=== PATIENT | female | born 1990 | race Caucasian/White ===

== ENCOUNTER 2024-07-06 09:22 | Inpatient (IN) | payer BC, MEDICAID ==
[~2024-07-06] VITALS: Ht 170.2 cm; Wt 106.9 kg
--- NOTE | 2024-07-06 10:01 | ED.PDOC ---
History of Present Illness HPI Comments 33-year-old female presents with a chief complaint of abdominal pain x 2 days with associated nausea, vomiting, and diarrhea. Patient states that her abdominal pain is localized to her epigastric region, non-radiating, and rates her pain a 7/10. Patient reports that she was seen here on Saturday and had imag ing done. Patient reports that she has been taking over the counter ibuprofen, but states that she has not had any relief of symptoms. No other symptoms or modifying factors present at this time. Chief Complaint: Abdominal Pain Time Seen by MD: 09:44 Reviewed Notes: Medications, Allergies Allergies: Coded Allergies: NO KNOWN ALLERGIES (Unverified , 07/06/24) Information Source: Patient Mode of Arrival: Ambulatory Severity: Moderate Timing: Days Duration: Since onset Prehospital treatment: None Past Medical History PAST MEDICAL HISTORY: Denies Surgical History: Denies all surgeries BILINGUAL CALL CENTER REPRESENTATIVE History: Denies all BILINGUAL CALL CENTER REPRESENTATIVE Hx Family History Family History: Reviewed,noncontributory to illness Social History Smoker: Non-Smoker Alcohol: Denies ETOH Use Drugs: Denies Drug Use Lives In: Home Constitutional: denies: chills, diaphoresis, fatigue, fever, malaise, sweats, weakness, others EENTM: denies: blurred vision, double vision, ear bleeding, ear discharge, ear drainage, ear pain, ear ringing, eye pain, eye redness, hearing loss, mouth pain, mouth swelling, nasal discharge, nose bleeding, nose congestion, nose pain, photophobia, tearing, throat pain, throat swelling, voice changes, others Respiratory: denies: cough, hemoptysis, orthopnea, SOB at rest, shortness of breath, SOB with excertion, stridor, wheezing, others Cardiovascular: denies: chest pain, dizzy spells, diaphoresis, Dyspnea on exertion, edema, irregular heart beat, left arm pain, lightheadedness, palpitations, PND, syncope, others Gastrointestinal: reports: abdominal pain, diarrhea, nausea, vomiting; denies: abdomen distended, blood streaked bowels, constipated, dysphagia, difficulty swallowing, hematemesis, melena, poor appetite, poor fluid intake, rectal bleeding, rectal pain, others Genitourinary: denies: abnormal vagina bleeding, burning, dyspareunia, dysuria, flank pain, frequency, hematuria, incontinence, pain, , vagina discharge, urgency, others Neurological: denies: dizziness, fainting, headache, left sided numbness, left sided weakness, numbness, paresthesia, pre-existing deficit, right sided numbness, right sided weakness, seizure, speech problems, tingling, tremors, weakness, others Musculoskeletal: denies: back pain, gout, joint pain, joint swelling, muscle pain, muscle stiffness, neck pain, others Integumetry: denies: bruises, change in color, change in hair/nails, dryness, laceration, lesions, lumps, rash, wounds, others Allergic/Immunocompromised: denies: Difficulty Healing, Frequent Infections, Hives, Itching, others Hematologic/Lymphatic: denies: anemia, blood clots, easy bleeding, easy bruising, swollen glands, others Endocrine: denies: excessive hunger, excessive sweating, excessive thirst, excessive urination, flushing, intolerance to cold, intolerance to heat, unexplained weight gain, unexplained weight loss, others Psychiatric: denies: anxiety, bipolar disorder, depression, hopeless, panic disorder, schizophrenia, sleepless, suicidal, others All Other Systems: Reviewed and Negative Physical Exam General Appearance: No Apparent Distress, Normal HEENT: Normal ENT Inspection, Pharynx Normal, TMs Normal Neck: Full Range of Motion, Non-Tender, Normal, Normal Inspection Respiratory: Chest Non-Tender, Lungs Clear, No Accessory Muscle Use, No Respiratory Distress, Normal Breath Sounds Cardiovascular: No Edema, No JVD, No Murmur, No Gallop, Normal Peripheral Pulses, Regular Rate/Rhythm Breast Exam: Deferred Gastrointestinal: No Organomegaly, Non Tender, No Pulsatile Mass, Normal Bowel Sounds, Soft Genitalia: Deferred Pelvic: Deferred Rectal: Deferred Extremities: No calf tenderness, Normal capillary refill, Normal inspection, Normal range of motion, Non-tender, No pedal edema Musculoskeletal : Apperance: Normal Neurologic: Alert, warper fixer II-XII nml as Tested, No Motor Deficits, Normal Affect, Normal Mood, No Sensory Deficits Cerebellar Function: Normal Reflexes: Normal Skin: Dry, Normal Color, Warm Lymphatic: No Adenopathy Was a procedure done? Was a procedure done?: No Differential Dx Considerations may include: Acute appendicitis, cholecystitis, acid reflux, ovarian cysts, pancreatitis X-Ray, Labs, Meds, VS Vital Signs Date Time Temp Pulse Resp B/P (MAP) Pulse Ox O2 Delivery O2 Flow Rate FiO2 07/06/24 12:03 72 16 114/73 07/06/24 10:57 98.0 68 16 114/81 (92) 96 98.0 07/06/24 10:57 68 18 96 Room Air* 0 21 07/06/24 10:55 65 16 114/81 07/06/24 09:46 98.0 82 18 125/72 (89) 100 Lab Test 07/06/24 11:00 07/06/24 09:52 Range/Units White Blood Count 8.3 4.4-10.8 10^3/uL Red Blood Count 4.37 4.0-5.20 10^6/uL Hemoglobin 13.7 12.2-16.2 g/dL Hematocrit 40.2 36.0-46.0 % Mean Corpuscular Volume 91.8 80.0-100.0 fL Mean Corpuscular Hemoglobin 31.4 28.0-32.0 pg Mean Corpuscular Hemoglobin Concent 34.2 32.0-36.0 g/dL Red Cell Distribution Width 12.9 11.8-14.3 % Platelet Count 249 140-450 10^3/uL Mean Platelet Volume 8.9 6.9-10.8 fL Neutrophils (%) (Auto) 58.2 37.0-80.0 % Lymphocytes (%) (Auto) 34.3 10.0-50.0 % Monocytes (%) (Auto) 5.3 0.0-12.0 % Eosinophils (%) (Auto) 1.4 0.0-7.0 % Basophils (%) (Auto) 0.8 0.0-2.0 % Neutrophils # (Auto) 4.8 1.6-8.6 10 ^3/uL Lymphocytes # (Auto) 2.8 0.4-5.4 10 ^3/uL Monocytes # (Auto) 0.4 0-1.3 10 ^3/uL Eosinophils # (Auto) 0.1 0-0.8 10 ^3/uL Basophils # (Auto) 0.1 0-0.2 10 ^3/uL Nucleated Red Blood Cells 0.1 % Sodium Level 141 136-145 mmol/L Potassium Level 3.3 L 3.5-5.1 mmol/L Chloride Level 109 H 98-107 mmol/L Carbon Dioxide Level 22 20-31 mmol/L Anion Gap 10 5-15 Blood Urea Nitrogen 9 9-23 mg/dL Creatinine 0.75 0.550-1.02 mg/dL Glomerular Filtration Rate Calc 108 >90 mL/min BUN/Creatinine Ratio 12.0 10.0-20.0 Serum Glucose 97 74-106 mg/dL Calcium Level 9.4 8.7-10.4 mg/dL Total Bilirubin 0.7 0.2-1.0 mg/dL Aspartate Amino Transferase (AST) 22 13-40 U/L Alanine Aminotransferase (ALT) 50 H 7-40 U/L Alkaline Phosphatase 76 46-116 U/L Total Protein 7.1 5.7-8.2 g/dL Albumin 4.5 3.2-4.8 g/dL Lipase 29 12-53 U/L Urine Color Yellow Yellow Urine Clarity Turbid H Clear Urine pH 5.5 5.0-9.0 Urine Specific [place] 1.021 1.001-1.035 Urine Protein Negative Negative Urine Ketones 1+ H Negative Urine Blood 2+ H Negative /uL Urine Nitrite Negative Negative Urine Bilirubin Negative Negative Urine Urobilinogen Normal Negative mg/dL Urine Leukocyte Esterase Negative Negative /uL Urine RBC 5 0 - 4 /hpf Urine WBC 7 0 - 5 /hpf Urine Squamous Epithelial Cells Few <5 /hpf Urine Bacteria None seen None Seen /hpf Urine Mucus Few None Seen Urine Glucose Normal Normal mg/dL Current Medications Medications (Trade) Dose Ordered Sig/Humberto Route Start Time Stop Time Status Last Admin Sodium Chloride 1,000 ml @ 1,000 mls/hr Q1H ONCE IV 07/06/24 10:30 07/06/24 11:29 DC 07/06/24 10:55 Ondansetron HCl (Zofran) 4 mg ONCE ONCE IV 07/06/24 10:30 07/06/24 10:31 DC 07/06/24 10:55 Morphine Sulfate 4 mg ONCE ONCE IV 07/06/24 10:30 07/06/24 10:31 DC 07/06/24 10:55 Time of 1ST Reevaluation: 10:14 Reevaluation 1ST: Unchanged Patient Education/Counseling: Diagnosis, Treatment, Prognosis Family Education/Counseling: No Family Present Departure 1 Departure Time of Disposition: 15:49 (Patient presented with abdominal pain that was concerning for possible appendicits, gastritis, cholecystitis, colitis, ga stroenteritis, sbo, or orther possible surgical emergency. Data: 1. I ordered and reviewed the result of at least 3 labs including a CBC, BMP, and Urinalysis. 2. I independently interpreted the following tests: CT Abdoment and Pelvis is concerning for ovarian cysts .Risk:This patient has a high risk of morbidity due to further diagnostic testing or treatment and may suffer from an acute abdominal process disorder. Workup reveals ovarian cyst and intractable abdominal pain and patient should be admitted for further workup. and possible expert consultation. ) Impression: Primary Impression: Intractable abdominal pain Additional Impression: Ovarian cyst Qualified Codes: N83.201 - Unspecified ovarian cyst, right side; N83.202 - Unspecified ovarian cyst, left side Disposition: ADMITTED INPATIENT Admit to: Med Surg Condition: Serious Critical Care Note Critical Care Time?: Yes Critical care comment: Intractable abdominal pain Authorized and Performed by: Alexandre Izaguirre MD Total critical care time: Approximately 32 minutes Due to a high probability of clinically significant, life threatening deterioration, the patient required my highest level of preparedness to i ntervene emergently and I personally spent this critical care time directly and personally managing the patient. This critical care time included obtaining a history; examining the patient; pulse oximetry; ordering and review of studies; arranging urgent treatment with development of a management plan; evaluation of patient's response to treatment; frequent reassessment; and, discussions with other providers. This critical care time was performed to assess and manage the high probability of imminent, life-threatening deterioration that could result in multi-organ failure. It was exclusive of separately billable procedures and treating other patients and teaching time. Please see my other sections and the rest of the note for further information on patient assessment and treatment. Stability Stability form required: No I personally scribed for ALEXANDRE IZAGUIRRE MD ([email or web address]) on 07/06/24 at 10:01. Electronically submitted by Tab Nelson ([email or web address]). ALEXANDRE IZAGUIRRE MD Jul 06, 2024 10:01
[2024-07-06] MEDS: MORPHINE SULFATE 4 MG/ML SYR/VIAL IV ONE ×2 (10:55→16:26)
[2024-07-06] MEDS: ONDANSETRON HCL 4 MG/2 ML VIAL IV ONE ×2 (10:55→16:25)
[2024-07-06] MEDS: SODIUM CHLORIDE 0.9% 1,000 ML IV ONE (10:55)
[2024-07-06 10:57] VITALS: PULSE 68; RESP 18; O2SAT 96
[2024-07-06 11:10] LABS: Basophils # (auto) 0.1 10 ^3/uL (0-0.2); Basophils % (auto) 0.8 % (0.0-2.0); Eosinophils # (auto) 0.1 10 ^3/uL (0-0.8); Eosinophils % (auto) 1.4 % (0.0-7.0); Hematocrit 40.2 % (36.0-46.0); Hemoglobin 13.7 g/dL (12.2-16.2); Lymphocytes # (auto) 2.8 10 ^3/uL (0.4-5.4); Lymphocytes % (auto) 34.3 % (10.0-50.0); Mean Corpuscular Hemoglobin 31.4 pg (28.0-32.0); Mean Corpuscular Hgb Conc. 34.2 g/dL (32.0-36.0); Mean Corpuscular Volume 91.8 fL (80.0-100.0); Monocytes # (auto) 0.4 10 ^3/uL (0-1.3); Monocytes % (auto) 5.3 % (0.0-12.0); Neutrophils # (auto) 4.8 10 ^3/uL (1.6-8.6); Neutrophils % (auto) 58.2 % (37.0-80.0); Nucleated Red Blood Cells % 0.1 %; Platelet Count (auto) 249 10^3/uL (140-450); Red Blood Cells 4.37 10^6/uL (4.0-5.20); Red Cell Distribution Width 12.9 % (11.8-14.3); White Blood Cell 8.3 10^3/uL (4.4-10.8)
[2024-07-06 11:38] LABS: Alanine Aminotransferase 50 U/L (7-40); Albumin 4.5 g/dL (3.2-4.8); Alkaline Phosphatase 76 U/L (46-116); Anion Gap 10 (5-15); Aspartate Aminotransferase 22 U/L (13-40); Bilirubin, Total 0.7 mg/dL (0.2-1.0); Blood Urea Nitrogen 9 mg/dL (9-23); Calcium 9.4 mg/dL (8.7-10.4); Carbon Dioxide 22 mmol/L (20-31); Chloride 109 mmol/L (98-107); Glucose 97 mg/dL (74-106); Potassium 3.3 mmol/L (3.5-5.1); Sodium 141 mmol/L (136-145); Total Protein 7.1 g/dL (5.7-8.2)
[2024-07-06 12:13] LABS: Urine Bacteria None Seen /hpf (None Seen)
[2024-07-06 12:29] LABS: Urine Blood 2+ /uL (Negative); Urine Clarity Turbid (Clear); Urine Color Yellow (Yellow); Urine Mucus FEW (None Seen); Urine Protein, UAD Negative (Negative); Urine Specific Gravity 1.021 (1.001-1.035); Urine Urobilinogen Normal (Negative); Urine WBC 7 /hpf (0 - 5); Urine pH 5.5 (5.0-9.0)
[2024-07-06 12:47] LABS: Lipase 29 U/L (12-53)
[2024-07-06] MEDS: IOHEXOL 300 MG/ML 100ML BOTTLE IJ ONE (13:36)
--- NOTE | 2024-07-06 13:55 | DVH ---
Exam: CT CT AB PEL WITH IV CON ONLY History: worsening epigastric pain TECHNIQUE: A digital buckle sewer machine image was obtained. During the uneventful, intravenous administration of c ontrast material, multislice data acquisition was obtained through the abdomen and pelvis. The data s et was subsequently reconstructed into axial images. Images were reviewed on a work station using a c ombination of axial and multiplanar using a variety of window levels and settings. 100 cc of Omnipaqu e 300 contrast was injected intravenously. All CT scans at this medical facility are performed using dose modulation techniques as appropriate t o a performed exam including the following:Automated exposure control was utilized; adjustment of the MA and/or KV according to patient size; and use of iterative reconstruction technique. Radiation Dose Information: CT Dose: CTDI volume is 18.85 mGy. Dose-length product is 1086.21 mGy*cm Comparison: None FINDINGS: There is diffuse fatty infiltration of the liver. The gallbladder, pancreas, kidneys, adrenal glan ds, and spleen appear within normal limits. There is no evidence of abdominal lymphadenopathy. There is no free fluid or free air. The stomach grossly appears unremarkable. The small and large bowel loops demonstrate normal caliber . There are scattered diverticula in the colon without evidence of acute diverticulitis. The abdominal aorta and IVC appear within normal limits. Bladder is decompressed limiting evaluation. The uterus appears within normal limits. There are mult iple follicles/ cysts in the right ovary, the largest measuring 3.9 x 2.5 cm.. There is no gross suleman dence of a pelvic mass. There is no free fluid collection. Lung bases are clear. There is no acute osseous abnormality. IMPRESSION: 1. There is no acute process in the abdomen and pelvis.. 2. Diffuse hepatic steatosis. 3. Multiple follicles/ cysts in the right ovary, the largest measuring 3.9 x 2.5 cm. Further evaluati on with dedicated pelvic ultrasound is recommended. HS:Y
[2024-07-06] MEDS ORDERED: ACETAMINOPHEN 325 MG TAB PO PRN (16:00)
[2024-07-06] MEDS ORDERED: DOCUSATE SOD 100 MG CAP PO PRN (16:00)
[2024-07-06] MEDS: POTASSIUM CHL 20 Meq TABLET PO ONE (16:24)
--- NOTE | 2024-07-06 16:29 | DVHHP2 ---
History of Present Illness Reason for Visit: Intractable abdominal pain History of Present Illness The patient is a 33-year-old female who denies past medical history presented to [facility] ED with complaint of abdominal pain for the past 2 days. Patient reports symptoms progressively get worse with associated nausea, vomiting, diarrhea, nonradiating localized epigastric abdominal pain, rating 7/10 numeric scale, getting worse today that prompted this visit. Patient was seen and evaluated in the ED, laboratory data shows WBC 8.3, platelets 249, sodium 141, potassium 3.3, BUN 9, creatinine 0.75, glucose 97, lipase 29, AST 22, ALT 50. Abdomen/pelvis CT revealing diffuse hepatic steatosis, multiple follicles/cysts in the right ovary, the largest measuring 3.9 x 2.5 cm, recommending pelvic ultrasound; no acute process in the abdomen and pelvis. Patient was given IV morphine sulfate 4 mg x 1, please see medication orders section in the computer. On my assessment, patient denies chest pain no headache, no dizziness, no shortness of breaths, no diarrhea, nausea, or vomitin g at this moment, no fever, no chills, rating abdominal pain 2/10 numeric scale. Patient was admitted for further evaluation and medical management. Past Medical History Denies past medical history Past Surgical History Denies all surgeries Family History Reviewed, noncontributory to the management of this case. Past Social History The patient lives at home, denies smoking, alcohol or illicit drugs abuse. Review of Systems Constitutional: No: Fever, Chills, Sweats, Weakness, Malaise, Other Eyes: No: Pain, Vision change, Conjunctivae inflammation, Eyelid inflammation, Other, Redness ENT: No: Ear pain, Ear discharge, Nose pain, Nose discharge, Nose congestion, Mouth pain, Mouth swelling, Throat pain, Throat swelling, Other Respiratory: No: Cough, Dry, Shortness of breath, SOB with excertion, Wheezing, Hemoptysis, Pleuritic Pain, Sputum, Wheezing, Other Cardiovascular: No: Chest Pain, Palpitations, Orthopnea, Paroxysmal Noc. Dyspnea, Edema, Lt Headedness, Other Gastrointestinal: Nausea, Vomiting, Abdominal Pain, Diarrhea; No: Constipation, Melena, Hematochezia, Other Genitourinary: No Dysuria, No Frequency, No Incontinence, No Hematuria, No Retention, No Other Musculoskeletal: No: other, neck pain, shoulder pain, arm pain, back pain, hand pain, leg pain, foot pain Skin: No: Rash, Lesions, Jaundice, Bruising, Other Neurological: No: Weakness, Numbness, Incoordination, Change in speech, Confu lesli, Seizures, Other Allergies: Coded Allergies: NO KNOWN ALLERGIES (Unverified , 07/06/24) Medications Current Medications Medications Dose Ordered Sig/Humberto Route Start Time Stop Time Status Last Admin Dose Admin Sodium Chloride 10 ml Q8HR IV 07/06/24 22:00 Acetaminophen/ Hydrocodone Bitart 1 tab Q4HP PRN PO 07/06/24 16:00 Ondansetron HCl 4 mg Q4HP PRN IV 07/06/24 16:00 Docusate Sodium 100 mg BIDPRN PRN PO 07/06/24 16:00 Acetaminophen 650 mg Q6HP PRN PO 07/06/24 16:00 Morphine Sulfate 2 mg Q4HPRN PRN IV 07/06/24 16:00 Exam Vital Signs Vital Signs Date Time Temp Pulse Resp B/P (MAP) Pulse Ox O2 Delivery O2 Flow Rate FiO2 07/06/24 16:26 80 14 98/69 07/06/24 16:08 97.5 96 97.5 07/06/24 10:57 Room Air* 0 21 General Appearance: Alert, Oriented X3, Cooperative, No acute distress HEENT: Atraumatic, PERRLA, EOMI, Mucous membr. moist/pink Respiratory: Clear to auscultation, Normal air movement Cardiovascular: Regular rate, Normal S1, Normal S2, No murmurs Abdominal: Normal bowel sounds, Soft, No hepatospenomegaly, No masses, Other (Reports tenderness) Extremities: No clubbing, No cyanosis, No edema, Normal pulses, No tenderne ss/swelling Skin: No rashes, No breakdown, No significant lesion Neuro: Normal gait, Normal speech, Strength at 5/5 X4 ext, Normal tone, Sensation intact, Cranial nerves 3-12 NL, Reflexes 2+ Psych/Mental Status: Mental status NL, Mood NL Labs/Xrays Labs Test 07/06/24 11:00 07/06/24 09:52 Range/Units White Blood Count 8.3 4.4-10.8 10^3/uL Red Blood Count 4.37 4.0-5.20 10^6/uL Hemoglobin 13.7 12.2-16.2 g/dL Hematocrit 40.2 36.0-46.0 % Mean Corpuscular Volume 91.8 80.0-100.0 fL Mean Corpuscular Hemoglobin 31.4 28.0-32.0 pg Mean Corpuscular Hemoglobin Concent 34.2 32.0-36.0 g/dL Red Cell Distribution Width 12.9 11.8-14.3 % Platelet Count 249 140-450 10^3/uL Mean Platelet Volume 8.9 6.9-10.8 fL Neutrophils (%) (Auto) 58.2 37.0-80.0 % Lymphocytes (%) (Auto) 34.3 10.0-50.0 % Monocytes (%) (Auto) 5.3 0.0-12.0 % Eosinophils (%) (Auto) 1.4 0.0-7.0 % Basophils (%) (Auto) 0.8 0.0-2.0 % Neutrophils # (Auto) 4.8 1.6-8.6 10 ^3/uL Lymphocytes # (Auto) 2.8 0.4-5.4 10 ^3/uL Monocytes # (Auto) 0.4 0-1.3 10 ^3/uL Eosinophils # (Auto) 0.1 0-0.8 10 ^3/uL Basophils # (Auto) 0.1 0-0.2 10 ^3/uL Nucleated Red Blood Cells 0.1 % Sodium Level 141 136-145 mmol/L Potassium Level 3.3 L 3.5-5.1 mmol/L Chloride Level 109 H 98-107 mmol/L Carbon Dioxide Level 22 20-31 mmol/L Anion Gap 10 5-15 Blood Urea Nitrogen 9 9-23 mg/dL Creatinine 0.75 0.550-1.02 mg/dL Glomerular Filtration Rate Calc 108 >90 mL/min BUN/Creatinine Ratio 12.0 10.0-20.0 Serum Glucose 97 74-106 mg/dL Calcium Level 9.4 8.7-10.4 mg/dL Total Bilirubin 0.7 0.2-1.0 mg/dL Aspartate Amino Transferase (AST) 22 13-40 U/L Alanine Aminotransferase (ALT) 50 H 7-40 U/L Alkaline Phosphatase 76 46-116 U/L Total Protein 7.1 5.7-8.2 g/dL Albumin 4.5 3.2-4.8 g/dL Lipase 29 12-53 U/L Urine Color Yellow Yellow Urine Clarity Turbid H Clear Urine pH 5.5 5.0-9.0 Urine Specific [place] 1.021 1.001-1.035 Urine Protein Negative Negative Urine Ketones 1+ H Negative Urine Blood 2+ H Negative /uL Urine Nitrite Negative Negative Urine Bilirubin Negative Negative Urine Urobilinogen Normal Negative mg/dL Urine Leukocyte Esterase Negative Negative /uL Urine RBC 5 0 - 4 /hpf Urine WBC 7 0 - 5 /hpf Urine Squamous Epithelial Cells Few <5 /hpf Urine Bacteria None seen None Seen /hpf Urine Mucus Few None Seen Urine Glucose Normal Normal mg/dL PATIENT: RHONDA CONNORS JACCT: [id number] UNIT: [id number] : 1990 LOC: ER ROOM / BED: / AGE / SEX: 33 / F ADM STATUS: REG ER SERVICE 1309 ORDERING PHYSICIAN: ALEXANDRE ADAMS MD PROCEDURE(s): ABPLIV - CT AB PEL WITH IV CON ONLY REASON: worsening epigastric pain ORDER NUMBER(s): [id number], ACCESSION NUMBER(s): [id number] Exam: CT CT AB PEL WITH IV CON ONLY History: worsening epigastric pain TECHNIQUE: A digital neurodiagnostic technician image was obtained. During the uneventful, intrave nous administration of contrast material, multislice data acquisition was obtained through the abdomen and pelvis. The data set was subsequently reconstructed into axial images. Images were reviewed on a work station using a combination of axial and multiplanar using a variety of window levels and settings. 100 cc of Omnipaque 300 contrast was injected intravenously. All CT scans at this medical facility are performed using dose modulation techniques as appropriate to a performed exam including the following:Automated exposure control was utilized; adjustment of the MA and/or KV according to patient size; and use of iterative reconstruction technique. Radiation Dose Information: CT Dose: CTDI volume is 18.85 mGy. Dose-length product is 1086.21 mGy*cm Comparison: None FINDINGS: There is diffuse fatty infiltration of the liver. The gallbladder, pancreas, kidneys, adrenal glands, and spleen appear within normal limits. There is no evidence of abdominal lymphadenopathy. There is no free fluid or free air. The stomach grossly appears unremarkable. The small and large bowel loops demonstrate normal caliber. There are scattered diverticula in the colon without evidence of acute diverticulitis. The abdominal aorta and IVC appear within normal limits. Bladder is decompressed limiting evaluation. The uterus appears within normal limits. There are multiple follicles/ cysts in the right ovary, the largest measuring 3.9 x 2.5 cm.. There is no gross evidence of a pelvic mass. There is no free fluid collection. Lung bases are clear. There is no acute osseous abnormality. IMPRESSION: 1. There is no acute process in the abdomen and pelvis.. 2. Diffuse hepatic steatosis. 3. Multiple follicles/ cysts in the right ovary, the largest measuring 3.9 x 2.5 cm. Further evaluation with dedicated pelvic ultrasound is recommended. Assessment/Plan Assessment/Plan Intractable abdominal pain Ovarian cyst Hypokalemia Unspecified ovarian cyst, right side Unspecified ovarian cyst, left side Plan 1. Admit to med surge unit 2. Breathing treatment 3. Pain control management 4. Management of fluids and electrolytes 5. Consultation for hospitalist 6. Diagnostic tests abdomen/pelvis CT 7. DVT prophylaxis on SCDs 8. Repeat labs CBC, CMP in a.m. 9. Continue with current medical management 10. Treatment plan discussed with patient and RN. Patient verbalized understanding. Plan discussed with: Patient, Other (RN) My Orders Orders - MACI MOLINA DNP Procedure Category Date Status Time * Slat Basket Maker Helper Consultation CONS 07/06/24 Transmitted 15:59 Allergies ROSEY 07/06/24 In Process 15:59 Code Status CODE 07/06/24 Transmitted 15:59 Sodium Chloride Lock PHA 07/06/24 In Process (Saline Lock Ns) 22:00 Oxygen Per Hour RT 07/06/24 Transmitted 15:59 Hydrocodone-Acet PHA 07/06/24 In Process 5/325mg Tab ([place] 16:00 Ondansetron Hcl PHA 07/06/24 In Process (Zofran) 16:00 Docusate Sodium PHA 07/06/24 In Process Capsule (Colace 16:00 Complete Blood Count LAB 07/07/24 Verified 04:00 Comprehensive LAB 07/07/24 Verified Metabolic Panel 04:00 Condition: Serious ROSEY 07/06/24 In Process 15:59 Acetaminophen Tablet PHA 07/06/24 In Process (Tylenol Tablet) 16:00 Clear Liq Diet DIET 07/06/24 Transmitted Dinner Bedrest With Bathroom ROSEY 07/06/24 In Process Privileg 15:59 Morphine Sulfate PHA 07/06/24 In Process Injection 16:00 Sequential ROSEY 07/06/24 In Process Compression Device Problem List: (1) Intractable abdominal pain (2) Ovarian cyst (3) Hypokalemia (4) Unspecified ovarian cyst, right side (5) Unspecified ovarian cyst, left side Date of Service: Jul 06, 2024 Billing Provider: MACI MOLINA DNP Common Visit Codes: [id number] INP/OBS CARE (HIGH) MACI MOLINA DNP Jul 06, 2024 16:29
[2024-07-06] MEDS ORDERED: MORPHINE SULFATE INJ 2 MG/ml SYRG IV PRN (16:30)
[2024-07-06] MEDS ORDERED: NITROGLYCERIN 0.4 MG SL TAB SL PRN (16:30)
--- NOTE | 2024-07-06 17:43 | DVH ---
INDICATION: Ovarian cysts TECHNIQUE: Multiple real-time grayscale transabdominal and transvaginal sonographic images along with color and duplex Doppler of the uterus and ovaries were obtained. COMPARISON: None FINDINGS: The uterus measures 6.1 x 4.1 x 5.3 cm cm. The endometrial stripe measures 3 mm. The right ovary measures 5.9 x 3.3 x 6.1 cm right ovarian volume is 61.4 cc. There is a 3.2 x 3.1 x 2.7 cm mass in the right ovary which appears anechoic suggesting a cyst. The left ovary not visible. Subsequent color and duplex Doppler interrogation of the ovaries demonstrated symmetric vascular flow to both ovaries, though this does not exclude the possibility of torsion due to the dual blood suppl y. IMPRESSION: 1. Right ovary measures 5.9 x 3.3 x 6.1 cm. 2. There is a 3.2 x 3.1 x 2.7 cm anechoic mass in the right ovary most likely a simple cyst. 3. Left ovary not visible.
--- NOTE | 2024-07-06 18:47 | DVHINCON2 ---
Date of service: Jul 06, 2024 Referring Physician ER Attending MD Reason for Consultation Pelvic abdominal pain, right ovarian cyst 3 x 3 x 2 cm History of Present Illness History Source: Patient, MD Notes HPI Patient presented to the ER with nausea vomiting diarrhea as well as pelvic abdominal pain she the incidental finding on CT and ultrasound a right ovarian cyst appears to be simple by ultrasound. Chief Complaint of Abdominal/F: Abdominal pain, Diarrhea, Vomiting Onset/Duration of Abd/Flank Pa: Waning Quality of Abd/Flank Pain: Aching Location of Abdominal Onset: RLQ, LLQ, Suprapubic, Generalized abdomen Abdominal Pain Radiation: No radiation Associated Symptoms of Abd/Fla: Back pain Past Medical History Cardiac: No pertinent Hx Pulmonary: No pertinent Hx Central Nervous System: No pertinent Hx GI: No pertinent Hx Hemotology/Oncology: No pertinent Hx Hepatobiliary: No pertinent Hx Psychiatric: No pertinent Hx Musculoskeletal: No pertinent Hx Rheumotologic: No pertinent Hx Infectious Disease: No peritnent Hx ENT: No pertinent Hx Renal/: No pertinent Hx Endocrine: No pertinent Hx Dermatology: No pertinent Hx Past Surgical History: No pertinent Hx Family History: No pertinent Hx Review of Systems Constitutional: No symptom reported Ears, Nose, & Throat: No symptom reported Eyes: No symptom reported Pulmonary/Respiratory: No symptom reported Cardiovascular: No symptom reported Gastrointestinal: No symptom reported Genitourinary: No symptom reported Musculoskeletal: No symptom reported Skin: No symptom reported Psychiatric: No symptom reported Endocrine: No symptom reported Hemotologic/Lymphatic: No symptom reported H&P Exam Vital Signs Vital Signs Date Time Temp Pulse Resp B/P (MAP) Pulse Ox O2 Delivery O2 Flow Rate FiO2 07/06/24 17:30 72 16 104/48 07/06/24 16:08 97.5 96 97.5 07/06/24 10:57 Room Air* 0 21 General Appeara: Well developed, Well nourished, Normal Appearance Head Exam: Normal inspection Pelvic Exam: External exam normal, Bimanual exam normal (Patient has no significant cervical motion tenderness are not adnexal tenderness), Speculum exam normal (Cervix appears grossly normal) Neuro/Mental St: Alert Skin Exam: Normal inspection Labs/Xrays Labs Test 07/06/24 11:00 07/06/24 09:52 Range/Units White Blood Count 8.3 4.4-10.8 10^3/uL Red Blood Count 4.37 4.0-5.20 10^6/uL Hemoglobin 13.7 12.2-16.2 g/dL Hematocrit 40.2 36.0-46.0 % Mean Corpuscular Volume 91.8 80.0-100.0 fL Mean Corpuscular Hemoglobin 31.4 28.0-32.0 pg Mean Corpuscular Hemoglobin Concent 34.2 32.0-36.0 g/dL Red Cell Distribution Width 12.9 11.8-14.3 % Platelet Count 249 140-450 10^3/uL Mean Platelet Volume 8.9 6.9-10.8 fL Neutrophils (%) (Auto) 58.2 37.0-80.0 % Lymphocytes (%) (Auto) 34.3 10.0-50.0 % Monocytes (%) (Auto) 5.3 0.0-12.0 % Eosinophils (%) (Auto) 1.4 0.0-7.0 % Basophils (%) (Auto) 0.8 0.0-2.0 % Neutrophils # (Auto) 4.8 1.6-8.6 10 ^3/uL Lymphocytes # (Auto) 2.8 0.4-5.4 10 ^3/uL Monocytes # (Auto) 0.4 0-1.3 10 ^3/uL Eosinophils # (Auto) 0.1 0-0.8 10 ^3/uL Basophils # (Auto) 0.1 0-0.2 10 ^3/uL Nucleated Red Blood Cells 0.1 % Sodium Level 141 136-145 mmol/L Potassium Level 3.3 L 3.5-5.1 mmol/L Chloride Level 109 H 98-107 mmol/L Carbon Dioxide Level 22 20-31 mmol/L Anion Gap 10 5-15 Blood Urea Nitrogen 9 9-23 mg/dL Creatinine 0.75 0.550-1.02 mg/dL Glomerular Filtration Rate Calc 108 >90 mL/min BUN/Creatinine Ratio 12.0 10.0-20.0 Serum Glucose 97 74-106 mg/dL Calcium Level 9.4 8.7-10.4 mg/dL Total Bilirubin 0.7 0.2-1.0 mg/dL Aspartate Amino Transferase (AST) 22 13-40 U/L Alanine Aminotransferase (ALT) 50 H 7-40 U/L Alkaline Phosphatase 76 46-116 U/L Total Protein 7.1 5.7-8.2 g/dL Albumin 4.5 3.2-4.8 g/dL Lipase 29 12-53 U/L Urine Color Yellow Yellow Urine Clarity Turbid H Clear Urine pH 5.5 5.0-9.0 Urine Specific [place] 1.021 1.001-1.035 Urine Protein Negative Negative Urine Ketones 1+ H Negative Urine Blood 2+ H Negative /uL Urine Nitrite Negative Negative Urine Bilirubin Negative Negative Urine Urobilinogen Normal Negative mg/dL Urine Leukocyte Esterase Negative Negative /uL Urine RBC 5 0 - 4 /hpf Urine WBC 7 0 - 5 /hpf Urine Squamous Epithelial Cells Few <5 /hpf Urine Bacteria None seen None Seen /hpf Urine Mucus Few None Seen Urine Glucose Normal Normal mg/dL Assessment/Plan Primary Diagnosis PCOS, gastroenteritis, constipation(no bowel movement in 4 days; Admitting Diagnosis: Pelvic abdominal pain gastroenteritis right simple ovarian cyst; no acute abdomen or surgical abdomen at this time Plan Treat symptomatically, hydration, pain meds as needed; patient to follow up as outpatient once stable for discharge no acute surgical abdomen at this time; appears to be classic PCOS typically responds to hormone therapy in the form of control./NSAIDs; defer treatment gastroenteritis to medical team; rule out gastritis peptic ulcer disease Plan discussed with: Patient BUSTAMANTE,AMISH Marcello GARZA Jul 06, 2024 18:47
[2024-07-06 20:46] VITALS: BP 94/61; PULSE 63; TEMP 97.7; O2SAT 97
[2024-07-06 20:49] VITALS: RESP 18
[2024-07-06] MEDS: HYDROcodone-ACET 5/325MG TAB PO PRN (21:08)
[2024-07-06] MEDS: SODIUM CHLOR 0.9% PF (SALINE LOCK) 10ML VIAL/SYR IV SCH (21:53)
[2024-07-06 22:40] VITALS: BP 95/65; PULSE 64; RESP 18; TEMP 98.7; O2SAT 96
[2024-07-07] VITALS (7 sets, daily range): BP systolic 105–117; BP diastolic 51–70; PULSE 58–80; RESP 16–20; TEMP 97.5–98.8; O2SAT 94–98
[2024-07-07] MEDS: MORPHINE SULFATE INJ 2 MG/ml SYRG IV PRN (06:03)
[2024-07-07] MEDS: ONDANSETRON HCL 4 MG/2 ML VIAL IV PRN (06:04)
[2024-07-07 07:11] LABS: Basophils # (auto) 0 10 ^3/uL (0-0.2); Basophils % (auto) 0.4 % (0.0-2.0); Eosinophils # (auto) 0.2 10 ^3/uL (0-0.8); Eosinophils % (auto) 2.6 % (0.0-7.0); Hematocrit 38.2 % (36.0-46.0); Hemoglobin 13.3 g/dL (12.2-16.2); Lymphocytes # (auto) 2.9 10 ^3/uL (0.4-5.4); Lymphocytes % (auto) 41.9 % (10.0-50.0); Mean Corpuscular Hemoglobin 32.1 pg (28.0-32.0); Mean Corpuscular Hgb Conc. 34.7 g/dL (32.0-36.0); Mean Corpuscular Volume 92.7 fL (80.0-100.0); Monocytes # (auto) 0.5 10 ^3/uL (0-1.3); Monocytes % (auto) 6.9 % (0.0-12.0); Neutrophils # (auto) 3.3 10 ^3/uL (1.6-8.6); Neutrophils % (auto) 48.2 % (37.0-80.0); Nucleated Red Blood Cells % 0.1 %; Platelet Count (auto) 244 10^3/uL (140-450); Red Blood Cells 4.13 10^6/uL (4.0-5.20); Red Cell Distribution Width 12.7 % (11.8-14.3); White Blood Cell 6.9 10^3/uL (4.4-10.8)
[2024-07-07 07:31] LABS: Alanine Aminotransferase 52 U/L (7-40); Albumin 4.2 g/dL (3.2-4.8); Alkaline Phosphatase 74 U/L (46-116); Anion Gap 7 (5-15); Aspartate Aminotransferase 24 U/L (13-40); BUN/Creatinine Ratio 11.1 (10.0-20.0); Bilirubin, Total 0.7 mg/dL (0.2-1.0); Blood Urea Nitrogen 8 mg/dL (9-23); Calcium 9.2 mg/dL (8.7-10.4); Carbon Dioxide 24 mmol/L (20-31); Chloride 109 mmol/L (98-107); Glucose 83 mg/dL (74-106); Potassium 3.7 mmol/L (3.5-5.1); Sodium 140 mmol/L (136-145); Total Protein 6.7 g/dL (5.7-8.2)
[2024-07-07] MEDS: DOCUSATE SOD 100 MG CAP PO ONE (12:50)
[2024-07-07] MEDS: LACTULOSE 20Gm/30ML SOLN PO ONE (12:51)
--- NOTE | 2024-07-07 15:01 | DVHPNRES ---
Progress Note Date Seen: Jul 07, 2024 Resident Creating Document: AME NELSONBRAYDON RESIDENT Medical Necessity Reason Pt with a Central, PICC or Fol: No Subjective Review of Systems Patient is a 33-year-old female with no significant past medical history presented to the ED with a chief complaint of abdominal pain and nausea vomiting for 3 days prior to admission. Patient reported that about 4 days prior to admission patient has started having sudden onset abdominal pain with multiple episodes of nausea and vomiting which prompted her to visit the ER the next day, CT abdomen pelvis was done which reportedly showed right ovarian cyst and the patient was sent home from the ER. With the patient went home she again started having nausea and multiple episodes of vomiting with dry heaving and she was not able to keep anything down. Patient reported that the last bowel movement she had was about [address] abdomen pelvis with IV contrast shows no acute process in the abdomen and pelvis, diffuse hepatic steatosis, multiple follicles/cysts in the right ovary largest measuring 3.9 X 2.5 cm. Further evaluation with pelvic ultrasound shows anechoic mass in the right ovary likely simple cyst. Patient reports history of chlamydia genitourinary infection which was treated with doxycycline earlier this month. Past medical history: None Past surgical history:None social history: Patient reports vaping, occasional alcohol use, denies smoking, denies drug use. Patient is in sexual relationship with a partner. Medications: None Review of systems Patient seen and examined at the bedside. Patient is alert and oriented to time, place and person. Patient reports no abdominal pain currently and reported that she she has no bowel movements since the past 5 days. Patient reports intermittent abdominal pain in the right and left lower quadrant, no radiation. Patient does not report of nausea or vomiting and is tolerating clear liquid diets well. Objective vital signs Vital Sign Date Time Temp Pulse Resp B/P (MAP) Pulse Ox O2 Delivery O2 Flow Rate FiO2 07/07/24 12:28 98.8 58 16 108/60 (76) 95 98.8 07/07/24 07:45 Room Air* 0 21 Total Intake and Output 07/06/24 07/06/24 07/07/24 15:00 23:00 07:00 Intake Total 1000 ml Balance 1000 ml medications Current Medications Medications Dose Ordered Sig/Humberto Route Start Time Stop Time Status Last Admin Dose Admin Sodium Chloride 10 ml Q8HR IV 07/06/24 22:00 07/07/24 05:46 10 ML Acetaminophen/ Hydrocodone Bitart 1 tab Q4HP PRN PO 07/06/24 16:00 07/06/24 21:08 1 TAB Ondansetron HCl 4 mg Q4HP PRN IV 07/06/24 16:00 07/07/24 06:04 4 MG Docusate Sodium 100 mg BIDPRN PRN PO 07/06/24 16:00 Acetaminophen 650 mg Q6HP PRN PO 07/06/24 16:00 Morphine Sulfate 2 mg Q4HPRN PRN IV 07/06/24 16:00 07/07/24 06:03 2 MG Nitroglycerin 0.4 mg Q5MINP PRN SL 07/06/24 16:30 Morphine Sulfate 2 mg Q30M PRN IV 07/06/24 16:30 Docusate Sodium 100 mg BID PO 07/07/24 22:00 Examination Physical Examination Gen - no pallor, no icterus, no cyanosis, no clubbing, no LAD, no edema . Skin - Patients skin is warm and dry. HEENT - normocephalic, atraumatic, moist mucous membranes. Neck - full ROM, no LAD, no JVD. Pulmonary - B/L vesicular breath sounds. no crackles , no wheezing, no stridor. cardiovascular - normal S1,S2 heard. no murmurs heard. peripheral pulses normal radial 2+, pedal 2+. capillary refill normal <2 secs. GI - soft abdomen without tenderness to palpation. no hepatospleenomegaly. Bowel sounds + Neurological - Patient is A/O X 3 . Bilateral upper extremity strength 5/5, bilateral lower extremity strength 5/5, no facial droop, normal speech, no tremor, no sensory deficiets. laboratory and microbiology Laboratory Tests 07/07/24 06:36 Test 07/07/24 06:36 Range/Units Serum Glucose 83 74-106 mg/dL Problem List/Assessment/Plan Problem List/Assessment/Plan Assessment and plan # Acute Intractable nausea and vomiting # Acute abdominal pain # Acute Gastroenteritis likely viral - Conservative management - patient is on clear liquid diet - zofran prn for nausea - will advance diet as tolerated # ?PCOS - Beta HCG negative - CT abdomen/pelvis shows Multiple follicles/ cysts in the right ovary, the largest measuring 3.9 x 2.5 cm. - Pelvic US shows right ovary measuring 5.9 x 3.3 x 6.1 cm, a 3.2 x 3.1 x 2.7 cm anechoic mass in the right ovary most likely a simple cyst. - OBGYN consulted who assessed the patient and recommended reading symptomatically with hydration, pain meds as needed - outpatient follow up once the patient is discharged for further management of ? PCOS. # Constipation - patient on docusate bid - given one dose of lactulose po - patient had a bowel movement after the medication # Mild transaminitis with hepatic steatosis - Hepatic steatosis seen on CT abd/pelvis - elevated AST and ALT - patient counselled on lifestyle modification Goals of care discussed with the patient for over 25 minutes. Full code. Plan discussed with Dr. Caceres Plan discussed with: Patient My Orders My Orders Orders - NÉSTOR NELSON Procedure Category Date Status Time Docusate Sodium PHA 07/07/24 In Process Capsule (Colace 22:00 Drug Screen LAB 07/07/24 Logged 11:03 Date of Service: Jul 07, 2024 Billing Provider: FREDERICK JEAN MD Common Visit Codes: [id number] INP/OBS CARE(HIGH) NÉSTOR NELSON RESIDENT Jul 07, 2024 15:01 FREDERICK JEAN MD Jul 13, 2024 00:16
[2024-07-07] MEDS: DOCUSATE SOD 100 MG CAP PO SCH (22:00)
[2024-07-08] VITALS (8 sets, daily range): BP systolic 102–110; BP diastolic 59–70; PULSE 55–75; RESP 18–20; TEMP 97.6–98.5; O2SAT 94–98
[2024-07-08 05:06] LABS: Basophils # (auto) 0 10 ^3/uL (0-0.2); Basophils % (auto) 0.4 % (0.0-2.0); Eosinophils # (auto) 0.1 10 ^3/uL (0-0.8); Eosinophils % (auto) 2.3 % (0.0-7.0); Hematocrit 41.3 % (36.0-46.0); Hemoglobin 14.2 g/dL (12.2-16.2); Lymphocytes # (auto) 2.5 10 ^3/uL (0.4-5.4); Lymphocytes % (auto) 38.8 % (10.0-50.0); Mean Corpuscular Hemoglobin 32.1 pg (28.0-32.0); Mean Corpuscular Hgb Conc. 34.4 g/dL (32.0-36.0); Mean Corpuscular Volume 93.4 fL (80.0-100.0); Monocytes # (auto) 0.4 10 ^3/uL (0-1.3); Monocytes % (auto) 6.4 % (0.0-12.0); Neutrophils # (auto) 3.3 10 ^3/uL (1.6-8.6); Neutrophils % (auto) 52.1 % (37.0-80.0); Nucleated Red Blood Cells % 0.1 %; Platelet Count (auto) 255 10^3/uL (140-450); Red Blood Cells 4.42 10^6/uL (4.0-5.20); Red Cell Distribution Width 12.6 % (11.8-14.3); White Blood Cell 6.4 10^3/uL (4.4-10.8)
[2024-07-08 05:27] LABS: Alanine Aminotransferase 62 U/L (7-40); Albumin 4.2 g/dL (3.2-4.8); Alkaline Phosphatase 77 U/L (46-116); Anion Gap 8 (5-15); Aspartate Aminotransferase 31 U/L (13-40); BUN/Creatinine Ratio 6.7 (10.0-20.0); Blood Urea Nitrogen 5 mg/dL (9-23); Calcium 9.4 mg/dL (8.7-10.4); Carbon Dioxide 23 mmol/L (20-31); Chloride 110 mmol/L (98-107); Cholesterol 165 mg/dL (< 200); Glucose 87 mg/dL (74-106); HDL Cholesterol 31 mg/dL (40-59); LDL Cholesterol 113 mg/dL (< 100); Potassium 3.6 mmol/L (3.5-5.1); Sodium 141 mmol/L (136-145); Triglycerides 132 mg/dL (< 150)
[2024-07-08 05:28] LABS: Bilirubin, Total 0.5 mg/dL (0.2-1.0); Total Protein 6.8 g/dL (5.7-8.2)
[2024-07-08] MEDS ORDERED: ZOFR4T PO (14:03)
[2024-07-08] MEDS ORDERED: METH-1181 PO (14:03)
[2024-07-08] MEDS ORDERED: DOCU-94 PO (14:03)
[2024-07-08] MEDS ORDERED: POLY335015 PO (14:03)
[2024-07-08] MEDS ORDERED: ACET-1079 PO (14:03)
[2024-07-08] MEDS: LACTULOSE 20Gm/30ML SOLN PO ONE (14:32)
[2024-07-08] MEDS ORDERED: IBUP-1453 PO (15:46)
--- NOTE | 2024-07-08 22:29 | DVHDSRES ---
Discharge Summary Date of Admission Resident Creating Document: NÉSTOR NELSON RESIDENT Jul 06, 2024 at 16:28 Date of Discharge: Jul 08, 2024 Admitting Diagnosis Intractable abdominal pain Ovarian cyst Hypokalemia Unspecified ovarian cyst, right side Unspecified ovarian cyst, left side Wounds: no wounds Labs/Diagnostic Data: Laboratory Results Test 07/08/24 04:20 07/07/24 06:36 07/06/24 16:11 07/06/24 11:00 White Blood Count 6.4 10^3/uL (4.4-10.8) Red Blood Count 4.42 10^6/uL (4.0-5.20) Hemoglobin 14.2 g/dL (12.2-16.2) Hematocrit 41.3 % (36.0-46.0) Mean Corpuscular Volume 93.4 fL (80.0-100.0) Mean Corpuscular Hemoglobin 32.1 pg (28.0-32.0) Mean Corpuscular Hemoglobin Concent 34.4 g/dL (32.0-36.0) Red Cell Distribution Width 12.6 % (11.8-14.3) Platelet Count 255 10^3/uL (140-450) Mean Platelet Volume 9.5 fL (6.9-10.8) Neutrophils (%) (Auto) 52.1 % (37.0-80.0) Lymphocytes (%) (Auto) 38.8 % (10.0-50.0) Monocytes (%) (Auto) 6.4 % (0.0-12.0) Eosinophils (%) (Auto) 2.3 % (0.0-7.0) Basophils (%) (Auto) 0.4 % (0.0-2.0) Neutrophils # (Auto) 3.3 10 ^3/uL (1.6-8.6) Lymphocytes # (Auto) 2.5 10 ^3/uL (0.4-5.4) Monocytes # (Auto) 0.4 10 ^3/uL (0-1.3) Eosinophils # (Auto) 0.1 10 ^3/uL (0-0.8) Basophils # (Auto) 0 10 ^3/uL (0-0.2) Nucleated Red Blood Cells 0.1 % Sodium Level 141 mmol/L (136-145) Potassium Level 3.6 mmol/L (3.5-5.1) Chloride Level 110 mmol/L (98-107) Carbon Dioxide Level 23 mmol/L (20-31) Anion Gap 8 (5-15) Blood Urea Nitrogen 5 mg/dL (9-23) Creatinine 0.75 mg/dL (0.550-1.02) Glomerular Filtration Rate Calc 108 mL/min (>90) BUN/Creatinine Ratio 6.7 (10.0-20.0) Serum Glucose 87 mg/dL (74-106) Hemoglobin A1c 5.6 % A1C (<5.7) Calcium Level 9.4 mg/dL (8.7-10.4) Total Bilirubin 0.5 mg/dL (0.2-1.0) Aspartate Amino Transferase (AST) 31 U/L (13-40) Alanine Aminotransferase (ALT) 62 U/L (7-40) Alkaline Phosphatase 77 U/L (46-116) Total Protein 6.8 g/dL (5.7-8.2) Albumin 4.2 g/dL (3.2-4.8) Triglycerides Level 132 mg/dL (< 150) Cholesterol Level 165 mg/dL (< 200) LDL Cholesterol 113 mg/dL (< 100) HDL Cholesterol 31 mg/dL (40-59) Vitamin B12 Level 1163 pg/mL (211-911) Thyroid Stimulating Hormone (TSH) 0.82 uIU/mL (0.55-4.78) Beta HCG, Quantitative 1.3 mIU/mL (1.5-4.2) Lipase 29 U/L (12-53) Test 07/06/24 09:52 Urine Color Yellow (Yellow) Urine Clarity Turbid (Clear) Urine pH 5.5 (5.0-9.0) Urine Specific [place] 1.021 (1.001-1.035) Urine Protein Negative (Negative) Urine Ketones 1+ (Negative) Urine Blood 2+ /uL (Negative) Urine Nitrite Negative (Negative) Urine Bilirubin Negative (Negative) Urine Urobilinogen Normal mg/dL (Negative) Urine Leukocyte Esterase Negative /uL (Negative) Urine RBC 5 /hpf (0 - 4) Urine WBC 7 /hpf (0 - 5) Urine Squamous Epithelial Cells Few /hpf (<5) Urine Bacteria None seen /hpf (None Seen) Urine Mucus Few (None Seen) Urine Glucose Normal mg/dL (Normal) Other Laboratory Tests 07/08/24 04:20 Brief Hx & Hospital Course: Patient is a 33-year-old female with no significant past medical history presented to the ED with a chief complaint of abdominal pain and nausea vomiting for 3 days prior to admission. Patient reported that about 4 days prior to admission patient has started having sudden onset abdominal pain with multiple episodes of nausea and vomiting which prompted her to visit the ER the next day, CT abdomen pelvis was done which reportedly showed right ovarian cyst and the patient was sent home from the ER. With the patient went home she again started having nausea and multiple episodes of vomiting with dry heaving and she was not able to keep anything down. Patient reported that the last bowel movement she had was about 5 days ago. . Patient reports history of chlamydia genitourinary infection which was treated with doxycycline earlier this month. Hospital course Patient was admitted to the hospital and CT abdomen pelvis with IV contrast was done which showed no acute process in the abdomen and pelvis, diffuse hepatic steatosis, multiple follicles/cysts in the right ovary largest measuring 3.9 X 2.5 cm. Further evaluation with pelvic ultrasound showed anechoic mass in the right ovary likely simple cyst. Patient's pain was managed with morphine for severe pain, Jasper 12/12/2024 for moderate pain, acetaminophen for mild pain. Patient was started on docusate 100 mg b.i.d. and lactulose for constipation. Patient had bowel movement after laxatives were started and reported that her pain improved. Patient was given IV fluid for hydration and was initially started on clear liquid diets which she tolerated well and the diet was progressed to full liquid. OBGYN were consulted who assessed the patient and recommended outpatient care after discharge for workup and management of PCOS. ROS- Patient seen and examined at the bedside. Patient is alert and oriented to time, place and person. Patient reports no abdominal pain currently and reported that she had 2 bowel movements. Patient does not report of nausea or vomiting and is tolerating clear liquid diets well. Discharge plan Patient is being discharged in stable condition to home and is advised to follow up in the D/C clinic in one week and with OBGYN in the outpatient clinic for further workup of PCOS. Patient was given pain meds, laxatives, methocarbamol PRN. Consults/Reason for consult OBGYN consulted for Right ovarian simple cyst ?PCOS Condition at Discharge: Good Final Diagnosis/Problems List # Acute Intractable nausea and vomiting # Acute abdominal pain # Acute Gastroenteritis likely viral # ?PCOS # Constipation # Mild transaminitis with hepatic steatosis Discharge Disposition: Home Discharge Instruct/Medications Diet: See Comment Diet comment: Full liquid diet for 1 week and advance diet after one week as tolerated Activity: No Restrictions, As Tolerated Follow Up/Referral: Follow up in the D/c clinic in one week Follow up with the PCP in 1 week Medications: As per EMR Discharge Statement: "Patient was advised to return to the ER or call 911 if any headaches, dizziness, shortness of breath, chest pain, abdominal pain, bleeding, fevers, or worsening of medical condition. Patient was counseled about treatment plan, medications, possible side effects, patientverbalized understanding. All questions were answered to the best of my ability. This discharge took greater then 30 minutes in planning, reviewing documentation, counseling the patient, and discussing with other team members." ASSESSMENT ASSESSMENT Assessment # Acute Intractable nausea and vomiting # Acute abdominal pain # Acute Gastroenteritis likely viral # ?PCOS # Constipation # Mild transaminitis with hepatic steatosis Date of Service: Jul 08, 2024 Billing Provider: FREDERICK JEAN MD Common Visit Codes: [id number]/[id number] DISCH DAY >30min NÉSTOR NELSON RESIDENT Jul 08, 2024 22:29 FREDERICK JEAN MD Jul 10, 2024 15:54
== END 2024-07-08 16:59 | disposition home or self-care (01) | DRG 392 ==
LOC: ER 09:22 → OVERFLOW 16:28 → CENTRAL 07-07 15:44
PROVIDERS: ADMIT Student in an Organized Health Care Education/Training Program; ATTEND Student in an Organized Health Care Education/Training Program
DX: A08.4 Viral intestinal infection, unspecified (principal); E87.6 Hypokalemia; E28.2 Polycystic ovarian syndrome; K59.00 Constipation, unspecified; K76.0 Fatty (change of) liver, not elsewhere classified
CPT/HCPCS: 36415; 74177; 76830; 76856; 80053; 80061; 81001; 82306; 82607; 83036; 83690; 84443; 84702; 85025; 96374; 96375; 99291; G0378; J2405